=== PATIENT | male | born 1960 | race Caucasian/White ===

== ENCOUNTER 2025-02-08 09:14 | Outpatient (CLI) | payer MEDICARE, SELFPAY ==
[2025-02-10 07:44] LABS: Pancreatic Elastase, Fecal 728 (>200)
== END 2025-02-08 23:59 | disposition home or self-care (01) ==
LOC: LAB 09:25
PROVIDERS: PCP Student in an Organized Health Care Education/Training Program; Visit Provider Internal Medicine Gastroenterology
DX: R14.0 Abdominal distension (gaseous) (principal); R19.5 Other fecal abnormalities
CPT/HCPCS: 82656

== ENCOUNTER 2025-03-30 07:59 | Day surgery (SDC) | payer MEDICARE, SELFPAY ==
[2025-03-25 11:34] VITALS: BMI 26.9
--- NOTE | 2025-03-29 17:00 | EXP.HP ---
History of Present Illness *Admission Date: 03/30/25 *History of present illness: Mr. Coreas is a 64-year-old gentleman who is here for diagnostic EGD and screening/surveillance colonoscopy. 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 The patient did have a colonoscopy in 2023 and had elongated polyp (tubular adenoma). His colonoscopy was by his GP/family practitioner and had been advised to have a repeat colonoscopy in August 2024 because he was uncertain whether he was able to repeat removed the entire polyp. The patient does state that his insurance would not cover. The patient has had difficulty since he had a ruptured appendix in 1984. He did have lysis of adhesions in 2018. About 3 days a month he will have significant abdominal pain ( colic ) which he reports is very intense pain with associated nausea and vomiting. He does feel little constipated. Normally he does have a lot of gassiness, belching, intermittent nausea and early satiety. He did have an EGD in 2015. He reports bowel frequency in the mornings with incomplete defecation. He did recently start a probiotic. He is not on any fiber. He reports no rectal bleeding, weight loss or family history of colon cancer. He reports no excessive wiping. He reports the pain is a twisting type pain. [facility] Disclaimer: The information contained in this section may have been updated after the patient was seen, as this information can be updated by other users. Medical History Hypertension Sleep apnea Hyperlipidemia Surgical History History of hernia surgery History of shoulder surgery History of mandibular surgery Hx of appendectomy Family History Sister Myeloma Father Coronary artery disease Diabetes Dementia Hyperlipidemia Hypertension Grandfather Coronary artery disease Social History Smoking Status: Never smoker alcohol intake: never substance use type: marijuana current occupational status: employed Travel in the last 8 weeks?: None caffeine: Yes Have you lived/traveled outside [place] in past 30 days?: No Contact w/someone who lives/traveled outside US past 30 days?: No Exposure to someone with infectious disease in past 14 days?: No Do you have a fever (greater than 100.4 F or 38 C)?: No Have you tested positive for COVID-19?: No Exposed to someone with COVID-19 in past 14 days?: No Do you have a sore throat?: No Do you have a cough?: No Do you have any weakness?: No Are you experiencing any nausea/vomitting?: No Do you have any diarrhea?: No Are you experiencing any unusual bleeding?: No Do you have any muscle aches/pain?: No Do you have any abdominal pain?: No Are you experiencing loss of taste or smell?: No Other Medical History Have you received the Pneumonia Vaccine: Yes Review of Systems Review of Systems Review of systems (narrative): Negative *Cardiovascular Comments: Negative *Gastrointestinal Comments: Negative *Genitourinary Comments: Negative *Musculoskeletal Comments: Negative *Neurologic Comments: Negative Meds Home Medications and Allergies Home Medications ?Medication ?Instructions ?Recorded ?Confirmed ?Type amlodipine 5 mg tablet 5 mg PO DAILY 02/08/25 03/30/25 History mecobalamin (vitamin B12) 1,000 1,000 mcg PO DAILY 02/08/25 03/30/25 History mcg lozenges omeprazole 10 mg capsule,delayed 10 mg PO DAILY 02/08/25 03/30/25 History release sertraline 50 mg tablet 50 mg PO DAILY 02/08/25 03/30/25 History [id number] 140 gram-sod sulfate 9 500 ml PO .COMPLEX colonscopy #3 ea 03/16/25 03/30/25 Rx gram-NaCl 5.2gram-KCl-C oral pwdr packs (Plenvu) luxub-[id number] 150 unit 150 unit PO DAILY 03/25/25 03/30/25 History tablet New Prescriptions to Start Prescriptions: Allergies Allergy/AdvReac Type Severity Reaction Status Date / Time No Known Allergies Allergy Verified 03/30/25 08:12 Exam *Routine HEENT Exam Head: Present normocephalic Eye: Present EOMI and PERRL ENT: Present mucous membranes moist *Routine Neck Exam Neck: Present supple *Routine Respiratory Exam Respiratory: Present CTA bilaterally *Routine Cardiovascular Exam Cardiovascular: Present RRR *Routine Abdominal Exam Abdominal: Present soft and normoactive bowel sounds; Absent tenderness *Routine Rectal Exam Rectal:: deferred *Routine Genitalia Exam Genitalia:: deferred *Routine Extremities Exam Extremities: Absent cyanosis, clubbing or edema *Routine Skin Exam Skin: Present warm; Absent rash *Routine Neurological Exam Neurological: Present alert and oriented X3 Assessment and Plan *Assessment and plan (1) Tubular adenoma of colon: Status: Acute Category: Medical Code(s): D12.6 - Benign neoplasm of colon, unspecified (2) Nausea and vomiting: Status: Acute Category: Medical Code(s): R11.2 - Nausea with vomiting, unspecified (3) Loose stools: Status: Acute Category: Medical Code(s): R19.5 - Other fecal abnormalities (4) Bloating: Status: Acute Category: Medical Code(s): R14.0 - Abdominal distension (gaseous) Plan A/P: 1. Nausea and vomiting with bloating for upper endoscopy and larger advanced tubular adenoma at prior colonoscopy for colonoscopy is the preprocedural diagnosis. The patient will be anesthetized/sedated using MAC sedation. The patient has been seen and examined. Cardiac and lung assessment prior to the examination is stable. Proceed with planned diagnostic EGD and screening colonoscopy.
[2025-03-30 08:13] VITALS: BP 184/90; PULSE 57; RESP 18; TEMP 36.2; O2SAT 96
[2025-03-30] MEDS: LACTATED RINGERS 1000ML 1,000 ML 50 ML IV (08:23)
--- NOTE | 2025-03-30 08:30 | EXP.ANES.CKL ---
[facility] Disclaimer: The information contained in this section may have been updated after the patient was seen, as this information can be updated by other users. Medical History Hypertension Sleep apnea Hyperlipidemia Surgical History History of hernia surgery History of shoulder surgery History of mandibular surgery Hx of appendectomy Family History Sister Myeloma Father Coronary artery disease Diabetes Dementia Hyperlipidemia Hypertension Grandfather Coronary artery disease Social History Smoking Status: Never smoker alcohol intake: never substance use type: marijuana current occupational status: employed Travel in the last 8 weeks?: None caffeine: Yes Have you lived/traveled outside US in past 30 days?: No Contact w/someone who lives/traveled outside US past 30 days?: No Exposure to someone with infectious disease in past 14 days?: No Do you have a fever (greater than 100.4 F or 38 C)?: No Have you tested positive for COVID-19?: No Exposed to someone with COVID-19 in past 14 days?: No Do you have a sore throat?: No Do you have a cough?: No Do you have any weakness?: No Are you experiencing any nausea/vomitting?: No Do you have any diarrhea?: No Are you experiencing any unusual bleeding?: No Do you have any muscle aches/pain?: No Do you have any abdominal pain?: No Are you experiencing loss of taste or smell?: No [facility] Anesthesia Checklist Patient Identification Patient Identification: Arm Band and Verbal (Name & ) Structural Data Planned Operative Procedure/s: EGD colonscopy Consent for Planned Operative Procedure(s) Verified: Yes Verified Documents: Surgical Consent and History and Physical NPO Status Verified Time NPO: 00:00 Additional verifications Patient : No Anesthesia Reactions: No Previous Colonoscopy: Yes Airway Assessment Mallampati Score:: Class II Dentition: Good Dentition Neurological Assessment Level of Consciousness: Awake, Alert and Appropriate Hx Seizures: No Numbness or tingling in extremities: No Anesthesia Plan Anesthesia Risk discussed: Yes Anesthesia Plan: Verified ASA Class: II Anesthesia Type: MAC
--- NOTE | 2025-03-30 09:01 | HMH.PROCNOTE ---
[facility] Procedure Note Date: 03/30/25 Time: 09:20 Procedure Note:: Upper Endoscopy Procedure Report: Esophagogastroduodenoscopy with cold biopsies Endoscopost: Kendall Azevedo II, MD Referring Physician: Rodolfo Balderrama DO, [address] [address] Date of Procedure: March 30, 2025 Equipment: Olympus [id number] standard upper endoscope Sedation: MAC sedation Indications: Mr. Coreas is a 64-year-old gentleman who is here for diagnostic EGD and screening/surveillance colonoscopy. 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 The patient did have a colonoscopy in 2023 and had elongated polyp (tubular adenoma). His colonoscopy was by his GP/family practitioner and had been advised to have a repeat colonoscopy in August 2024 because he was uncertain whether he was able to repeat removed the entire polyp. The patient does state that his insurance would not cover. The patient has had difficulty since he had a ruptured appendix in 1984. He did have lysis of adhesions in 2018. About 3 days a month he will have significant abdominal pain ( colic ) which he reports is very intense pain with associated nausea and vomiting. He does feel little constipated. Normally he does have a lot of gassiness, belching, intermittent nausea and early satiety. He did have an EGD in 2015. He reports bowel frequency in the mornings with incomplete defecation. He did recently start a probiotic. He is not on any fiber. He reports no rectal bleeding, weight loss or family history of colon cancer. He reports no excessive wiping. He reports the pain is a twisting type pain. Procedure: Prior to the procedure, a history and physical exam was performed, and patient's medications and allergies were reviewed. The risks, benefits and alternatives of the sedation and procedure were discussed with the patient. All questions were answered and informed consent was obtained. The patient was brought to the procedure room. Patient identification and proposed procedure were verified by the physician and the nurse. The patient was placed in a left lateral decubitus position and the scope was passed under direct vision. Throughout the procedure, the patient's blood pressure, pulse, and oxygen saturations were monitored continuously. The upper GI endoscopy was accomplished without difficulty. The patient tolerated the procedure well. Findings: The scope was passed directly into the upper esophagus and advanced to the third portion of the duodenum. A cold biopsy was taken from the second portion of the duodenum for the disaccharidase assay. The post bulbar duodenum, ampulla and duodenal bulb were normal with normal mucosa and conniventes. The scope was withdrawn through a normal duodenal bulb and pylorus into the stomach. There was some mild linear reactive gastropathy of the antrum. The body and fundus of the stomach were normal. Upon retroflexion there was a 3 to 4 cm medium sized sliding hiatal hernia. Cold biopsies were taken from the antrum. The scope was then withdrawn into the esophagus. There was no evidence of reflux esophagitis. There was a single thin salmon-colored tongue of mucosa extending from the Z-line and this was biopsied to rule out short segment Nunez's esophagus. There were 2 proximal esophageal inlet patches. The remainder of the esophageal mucosa was normal. Impression: 1. Proximal esophageal inlet patches x 2 2. Nonerosive GERD with mild esophageal dysmotility and 3 to 4 cm medium sized hiatal hernia 3. Mild linear reactive gastropathy of antrum Plan: I will follow-up the biopsies and disaccharidase assay. I will discuss the findings with the patient and family and proceed with screening/surveillance colonoscopy.
--- NOTE | 2025-03-30 09:23 | P.PCN_ITS ---
[facility] Procedure Note Date: 03/30/25 Time: 09:38 Procedure Note:: Colonoscopy Procedure Report: Colonoscopy with cold snare polypectomy Endoscopist: Kendall Azevedo II, MD Referring physician: Rodolfo Balderrama DO, [address] [address] Date of Procedure: March 30, 2025 Equipment: Olympus [id number] adult colonoscope Sedation: MAC sedation Indication: Mr. Coreas is a 64-year-old gentleman who is here for diagnostic EGD and screening/surveillance colonoscopy. 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 The patient did have a colonoscopy in 2023 and had elongated polyp (tubular adenoma). His colonoscopy was by his GP/family practitioner and had been advised to have a repeat colonoscopy in August 2024 because he was uncertain whether he was able to repeat removed the entire polyp. The patient does state that his insurance would not cover. The patient has had difficulty since he had a ruptured appendix in 1984. He did have lysis of adhesions in 2018. About 3 days a month he will have significant abdominal pain ( colic ) which he reports is very intense pain with associated nausea and vomiting. He does feel little constipated. Normally he does have a lot of gassiness, belching, intermittent nausea and early satiety. He did have an EGD in 2015. He reports bowel frequency in the mornings with incomplete defecation. He did recently start a probiotic. He is not on any fiber. He reports no rectal bleeding, weight loss or family history of colon cancer. He reports no excessive wiping. He reports the pain is a twisting type pain. Procedure: Prior to the procedure, a history and physical exam was performed, and patient's medications and allergies were reviewed. The risks, benefits and alternatives of the sedation and procedure were discussed with the patient. All questions were answered and informed consent was obtained. The patient was brought to the procedure room. Patient identification and proposed procedure were verified by the physician and the nurse. The patient was placed in a left lateral decubitus position and the scope was passed under direct vision. Throughout the procedure, the patient's blood pressure, pulse, and oxygen saturations were monitored continuously. The colonoscopy was accomplished without difficulty. The patient tolerated the procedure well. Findings: On digital rectal examination there was normal rectal tone. There were no external hemorrhoids. There was mild internal hemorrhoidal prolapse. The prostate was 2+, mildly firm but symmetric without nodules. The colonoscope was introduced through the anal canal to the rectum and advanced to the cecum. The ileocecal valve and appendiceal orifice were identified. The scope was advanced a short distance into the ileum which appeared grossly normal. The scope was then withdrawn into the colon. There were 3 polyps (ascending x 2 (4 and 4 mm) and transverse x 1 (6 to 7 mm)). These were all removed via cold snare polypectomy. The remaining cecum, ascending and transverse colon and mucosa were grossly normal. There were scattered diverticuli throughout the descending and sigmoid colon (LEFT colon). The rectum itself was normal. Upon retroflexion within the rectum there were grade 2?3 internal hemorrhoids. The preparation was excellent throughout with [place] Preparation Score of 9. The cecal time was 12 minutes. Impression: 1. Diminutive colonic polyps x 3 2. Left-sided diverticulosis 3. Grade 2?3 internal hemorrhoids Plan: I will follow-up the polyp histology and recommend repeat screening/surveillance colonoscopy again in 5 years. I would encourage a fiber bowel regimen on a long-term daily maintenance basis.
[2025-03-30 09:40] VITALS: BP 94/55; PULSE 47; RESP 15; TEMP 36.1; O2SAT 95
[2025-03-30 09:50] VITALS: BP 135/74; PULSE 94; RESP 17; TEMP 36.1; O2SAT 95
[2025-03-30 10:00] VITALS: BP 158/77; PULSE 47; RESP 18; TEMP 36.1; O2SAT 99
[2025-03-30 10:10] VITALS: BP 166/92; PULSE 44; RESP 18; TEMP 36.1; O2SAT 100
[2025-04-05 15:28] LABS: Interpretation Notes (.); Lactase 21.28 (>/= 14.0); Maltase 328.15 (>/= 110.0); Palatinase 21.28 (>/= 8.5); Reference Notes (.); Sucrase 85.79 (>/= 25.0)
== END 2025-03-30 10:31 | disposition home or self-care (01) ==
PROVIDERS: PCP Student in an Organized Health Care Education/Training Program; Visit Provider Internal Medicine Gastroenterology
PROC: 0DJ08ZZ Inspection of Upper Intestinal Tract, Via Natural or Artificial Opening Endoscopic (ICD-10-PCS; CPT 45378; principal; 2025-03-30 09:30)
DX: Z12.11 Encounter for screening for malignant neoplasm of colon (principal); D12.4 Benign neoplasm of descending colon; D12.3 Benign neoplasm of transverse colon; K64.1 Second degree hemorrhoids; K64.2 Third degree hemorrhoids; K57.30 Diverticulosis of large intestine without perforation or abscess without bleeding; K44.9 Diaphragmatic hernia without obstruction or gangrene; K31.89 Other diseases of stomach and duodenum; K22.4 Dyskinesia of esophagus; K21.9 Gastro-esophageal reflux disease without esophagitis; I10 Essential (primary) hypertension; G47.30 Sleep apnea, unspecified; E78.5 Hyperlipidemia, unspecified; Z90.49 Acquired absence of other specified parts of digestive tract; Z86.0101 Personal history of adenomatous and serrated colon polyps; Z79.899 Other long term (current) drug therapy
CPT/HCPCS: 45385; 43239; 82657; J2003; J2704; J7120